=== PATIENT | female | born 1950 ===

== ENCOUNTER 2024-06-30 08:35 | Outpatient (CLI) | payer OTHER | END 2024-06-30 08:55 | disposition home or self-care (01) | LOC: TOM 08:35 | PROVIDERS: ATTEND Colon & Rectal Surgery | DX: K57.20 Diverticulitis of large intestine with perforation and abscess without bleeding (principal) | CPT/HCPCS: 74177; Q9965 ==

== ENCOUNTER 2024-07-04 09:15 | Inpatient (IN) | payer OTHER ==
[~2024-07-04] VITALS: Ht 154.9 cm; Wt 87.5 kg
[2024-07-04 12:06] VITALS: BP 144/80
[2024-07-04 12:07] VITALS: BP 144/65
[2024-07-04 12:18] LABS: INR 1.06; PARTIAL THROMBOPLASTIN TIME 24.2 SECONDS (22.0-34.0); PROTHROMBIN TIME 11.5 SECONDS (9.0-11.5)
[2024-07-04] MEDS ORDERED: PREDNISONE 5 MG (12:28)
[2024-07-04] MEDS ORDERED: ECOTRIN81 MG PO (12:29)
[2024-07-04] MEDS ORDERED: PLAQUENIL 200MG (12:29)
[2024-07-04] MEDS ORDERED: FOLIC ACID 1MG (12:30)
[2024-07-04] MEDS ORDERED: LOZARTAN 50MG (12:31)
[2024-07-04] MEDS ORDERED: SIMBASTATIN (12:33)
[2024-07-04] MEDS ORDERED: DETROL LA4 MG PO (12:34)
[2024-07-04] MEDS ORDERED: PROTONIX40 MG PO (12:34)
[2024-07-04] MEDS ORDERED: GABAPENTIN 200 MG (12:35)
[2024-07-04] MEDS ORDERED: PEPCID AC20 MG PO (12:36)
[2024-07-04] MEDS ORDERED: EC-NAPROSYN500 MG PO (12:36)
[2024-07-04] MEDS ORDERED: GOLIMUMAB 50 MG (12:37)
[2024-07-14 09:18] LABS: RH POSITIVE
[2024-07-14] MEDS ORDERED: CEFTRIAXONE SODIUM 2,000 MG VIAL IV SCH (09:30)
[2024-07-14] MEDS ORDERED: BUPIVACAINE HCL/PF 0.25% 30ML VIAL InF ONE (09:30)
[2024-07-14] MEDS ORDERED: LIDOCAINE HCL 1%/EPINEPHRINE 20ML VIAL IJ ONE (09:30)
[2024-07-14] MEDS ORDERED: CHLORHEXIDINE GLUCONATE 120 ML BOTTLE TOP ONE (09:30)
[2024-07-14] MEDS ORDERED: METRONIDAZOLE/SODIUM CHLORIDE 500 MG/100 ML PIGGYBACK IV SCH (09:30)
[2024-07-14] MEDS ORDERED: MORPHINE SULFATE 4 MG/ML CARTRIDGE IV PRN (13:30)
[2024-07-14] MEDS ORDERED: RINGERS SOLUTION,LACTATED 1,000 ML IV SCH (13:30)
[2024-07-14] MEDS ORDERED: ONDANSETRON HCL 2 MG/ML VIAL IV PRN (13:30)
[2024-07-14] MEDS ORDERED: MORPHINE SULFATE 2 MG/ML CARTRIDGE IV ONE (14:30)
[2024-07-14] MEDS ORDERED: SUGAMMADEX SODIUM 200 MG/2 ML VIAL IV ONE (14:45)
[2024-07-14] MEDS ORDERED: MORPHINE SULFATE 4 MG/ML VIAL IV ONE (15:00)
[2024-07-14] MEDS ORDERED: SIMVASTATIN 20 MG TABLET PO SCH (17:00)
[2024-07-14] MEDS ORDERED: SIMETHICONE 125 MG CAPSULE PO SCH (17:00)
[2024-07-14] MEDS ORDERED: POLYETHYLENE GLYCOL 3350 17 GM BLIST.PACK PO SCH (17:00)
[2024-07-14 17:34] LABS: HEMATOCRIT 38.5 % (36.0-45.00); HEMOGLOBIN 12.4 g/dL (12.0-15.00); MEAN CELL VOLUME 92.6 fL (80.00-100.00); MEAN CORPUSCULAR HEMOGLOBIN 29.8 pg (27.00-32.0); MEAN CORPUSCULAR HGB CONC 32.2 g/dl (32.0-36.0); PLATELET COUNT 192 K/uL (150-450); RED BLOOD COUNT 4.15 M/uL (4.00-6.00); RED CELL DISTRIBUTION WIDTH 13.6 % (11.5-14.5)
[2024-07-14 17:35] VITALS: BP 144/65; O2SAT 97
[2024-07-14] MEDS ORDERED: ACETAMINOPHEN 500 MG GEL..CAP PO SCH (18:00)
[2024-07-14 18:01] LABS: ALBUMIN 3.1 gm/dL (3.4-5.0); CALCIUM 8.4 mg/dL (8.5-10.1); CREATININE SERUM 0.62 mg/dL (0.55-1.02); GFR 94.62; PHOSPHOROUS 4.2 mg/dL (2.5-4.9); POTASSIUM 3.46 mEq/L (3.5-5.1)
[2024-07-14 18:51] LABS: MAGNESIUM 1.1 mg/dL (1.8-2.4)
[2024-07-14] MEDS ORDERED: MAGNESIUM SULFATE IN WATER 2 GM/50 ML PIGGYBAG IV STA (19:07)
[2024-07-14] MEDS ORDERED: FAMOTIDINE/PF 20 MG/2 ML VIAL IV PUSH SCH (21:00)
[2024-07-15 01:09] VITALS: BP 134/60; O2SAT 97
[2024-07-15 08:24] LABS: HEMATOCRIT 35.3 % (36.0-45.00); HEMOGLOBIN 11.5 g/dL (12.0-15.00); MEAN CELL VOLUME 93.2 fL (80.00-100.00); MEAN CORPUSCULAR HEMOGLOBIN 30.3 pg (27.00-32.0); MEAN CORPUSCULAR HGB CONC 32.5 g/dl (32.0-36.0); PLATELET COUNT 176 K/uL (150-450); RED BLOOD COUNT 3.79 M/uL (4.00-6.00); RED CELL DISTRIBUTION WIDTH 13.8 % (11.5-14.5)
[2024-07-15 08:51] LABS: ALBUMIN 2.6 gm/dL (3.4-5.0); CREATININE SERUM 1.24 mg/dL (0.55-1.02); GFR 42.52; MAGNESIUM 1.6 mg/dL (1.8-2.4); PHOSPHOROUS 4.1 mg/dL (2.5-4.9); POTASSIUM 4.12 mEq/L (3.5-5.1)
[2024-07-15] MEDS ORDERED: LOSARTAN POTASSIUM 50 MG TABLET PO SCH (09:00)
[2024-07-15] MEDS ORDERED: PREDNISONE 5 MG TABLET PO SCH (09:00)
[2024-07-15] MEDS ORDERED: GABAPENTIN 400 MG CAPSULE PO SCH (09:00)
[2024-07-15] MEDS ORDERED: LACTOBACILLUS ACIDOPHILUS 1 CAP CAP PO SCH (09:00)
[2024-07-15] MEDS ORDERED: MAGNESIUM CHLORIDE 70 MG TABLET.DR PO SCH (09:00)
[2024-07-15 10:14] VITALS: BP 129/62; O2SAT 98
[2024-07-15] MEDS ORDERED: TAMSULOSIN HCL 0.4 MG CAP PO SCH ×2 (12:55→18:40)
[2024-07-15 16:35] VITALS: BP 106/55; O2SAT 95
[2024-07-15] MEDS ORDERED: ENOXAPARIN SODIUM 40 MG/0.4 ML SYRINGE SUBCUTANEO SCH (17:00)
[2024-07-15] MEDS ORDERED: MAGNESIUM SULFATE IN WATER 2 GM/50 ML PIGGYBAG IV STA (18:30)
[2024-07-15] MEDS ORDERED: OxyCODONE HCL 5 MG TABLET (ROXICODONE) PO PRN (18:45)
[2024-07-16 01:20] VITALS: BP 110/54; O2SAT 95
[2024-07-16 07:38] LABS: HEMATOCRIT 31.3 % (36.0-45.00); HEMOGLOBIN 10.7 g/dL (12.0-15.00); MEAN CELL VOLUME 90.7 fL (80.00-100.00); MEAN CORPUSCULAR HEMOGLOBIN 30.9 pg (27.00-32.0); PLATELET COUNT 180 K/uL (150-450); RED BLOOD COUNT 3.45 M/uL (4.00-6.00)
[2024-07-16 08:10] LABS: ALBUMIN 2.3 gm/dL (3.4-5.0); CALCIUM 8.4 mg/dL (8.5-10.1); CREATININE SERUM 1.08 mg/dL (0.55-1.02); GFR 49.87; MAGNESIUM 2.2 mg/dL (1.8-2.4); PHOSPHOROUS 3.9 mg/dL (2.5-4.9); POTASSIUM 4.01 mEq/L (3.5-5.1)
[2024-07-16] MEDS ORDERED: FAMOtidine 20 MG TABLET PO SCH (09:00)
[2024-07-16 10:39] VITALS: BP 114/59; O2SAT 96
[2024-07-16 16:00] VITALS: BP 107/55; O2SAT 100
[2024-07-16] MEDS ORDERED: CIPROFLOXACIN IN 5 % DEXTROSE 400 MG/200 ML PIGGYBAG IV SCH (17:00)
[2024-07-16] MEDS ORDERED: METRONIDAZOLE/SODIUM CHLORIDE 100 ML IV SCH (17:00)
[2024-07-16 23:51] VITALS: BP 106/56; O2SAT 98
[2024-07-17 07:21] LABS: ALBUMIN 2.5 gm/dL (3.4-5.0); CALCIUM 8.4 mg/dL (8.5-10.1); CREATININE SERUM 1.18 mg/dL (0.55-1.02); GFR 45.02; MAGNESIUM 2.4 mg/dL (1.8-2.4); PHOSPHOROUS 3.4 mg/dL (2.5-4.9); POTASSIUM 4.09 mEq/L (3.5-5.1)
[2024-07-17 08:32] VITALS: BP 112/72; O2SAT 97
[2024-07-17] MEDS ORDERED: NAPH,MB-DB/K PH,MBDB 1 PKT PACKET PO NR (11:15)
[2024-07-17] MEDS ORDERED: CHOLESTYRAMINE/ASPARTAME LIGHT 4 G/PKT PACKET PO STA (14:33)
[2024-07-17 16:31] VITALS: BP 116/69; O2SAT 95
[2024-07-17] MEDS ORDERED: NAPH,MB-DB/K PH,MBDB 1 PKT PACKET PO SCH (17:00)
[2024-07-18] VITALS: BP 101/60; O2SAT 95
[2024-07-18 08:19] VITALS: BP 133/63; O2SAT 97
[2024-07-18] MEDS ORDERED: HYOSCYAMINE SULFATE 0.125 MG TAB.SUBL SL PRN (08:30)
[2024-07-18 14:21] LABS: HEMATOCRIT 29.5 % (36.0-45.00); MEAN CELL VOLUME 90.9 fL (80.00-100.00); MEAN CORPUSCULAR HEMOGLOBIN 30.7 pg (27.00-32.0); MEAN CORPUSCULAR HGB CONC 33.7 g/dl (32.0-36.0); PLATELET COUNT 189 K/uL (150-450); RED BLOOD COUNT 3.25 M/uL (4.00-6.00); RED CELL DISTRIBUTION WIDTH 13.9 % (11.5-14.5)
[2024-07-18 15:17] LABS: ALBUMIN 2.3 gm/dL (3.4-5.0); CALCIUM 8.1 mg/dL (8.5-10.1); CREATININE SERUM 0.6 mg/dL (0.55-1.02); GFR 98.27; MAGNESIUM 1.7 mg/dL (1.8-2.4); PHOSPHOROUS 2.2 mg/dL (2.5-4.9); POTASSIUM 4.6 mEq/L (3.5-5.1)
[2024-07-18 18:51] VITALS: BP 127/70; O2SAT 95
[2024-07-19] VITALS: BP 118/59; O2SAT 98
[2024-07-19 08:20] VITALS: BP 160/72; O2SAT 97
[2024-07-19] MEDS ORDERED: MAGNESIUM SULFATE IN WATER 2 GM/50 ML PIGGYBAG IV NR (11:17)
[2024-07-19] MEDS ORDERED: NAPH,MB-DB/K PH,MBDB 1 PKT PACKET PO SCH (11:17)
== END 2024-07-19 18:19 | disposition home or self-care (01) | DRG 330 ==
LOC: EDUNIT# 09:15 → SURH 07-14 06:16 → O/R 07-14 06:16 → SURH 07-14 07:00
PROVIDERS: ADMIT Colon & Rectal Surgery; ATTEND Colon & Rectal Surgery
PROC: 0DJD4ZZ Inspection of Lower Intestinal Tract, Percutaneous Endoscopic Approach (ICD-10-PCS; 2024-07-14)
PROC: 0DBP0ZZ Excision of Rectum, Open Approach (ICD-10-PCS; 2024-07-14)
PROC: 0DN80ZZ Release Small Intestine, Open Approach (ICD-10-PCS; 2024-07-14)
PROC: 0DBM0ZZ Excision of Descending Colon, Open Approach (ICD-10-PCS; 2024-07-14)
PROC: 0WQF0ZZ Repair Abdominal Wall, Open Approach (ICD-10-PCS; 2024-07-14)
PROC: 0DT80ZZ Resection of Small Intestine, Open Approach (ICD-10-PCS; 2024-07-14)
PROC: 0D9W0ZZ Drainage of Peritoneum, Open Approach (ICD-10-PCS; 2024-07-14)
PROC: 0DTN0ZZ Resection of Sigmoid Colon, Open Approach (ICD-10-PCS; principal; 2024-07-14 07:00)
PROC: BW21ZZZ Computerized Tomography (CT Scan) of Abdomen and Pelvis (ICD-10-PCS; 2024-07-18)
DX: K57.20 Diverticulitis of large intestine with perforation and abscess without bleeding (principal); K43.3 Parastomal hernia with obstruction, without gangrene; K56.51 Intestinal adhesions [bands], with partial obstruction; Z43.3 Encounter for attention to colostomy; Z53.31 Laparoscopic surgical procedure converted to open procedure

== ENCOUNTER 2024-07-10 05:23 | Day surgery (SDC) | payer OTHER ==
[~2024-07-10 05:23] MED LIST: DETROL LA4 MG PO; EC-NAPROSYN500 MG PO; ECOTRIN81 MG PO; FOLIC ACID 1MG; GABAPENTIN 200 MG; GOLIMUMAB 50 MG; LOZARTAN 50MG; PEPCID AC20 MG PO; PLAQUENIL 200MG; PREDNISONE 5 MG; PROTONIX40 MG PO; SIMBASTATIN
[2024-07-10] MEDS ORDERED: MIDAZOLAM HCL 2 MG/2 ML VIAL IV ONE (12:45)
[2024-07-10] MEDS ORDERED: fentaNYL CITRATE 50 MCG/ML AMPUL IV PUSH ONE (12:45)
[2024-07-10] MEDS ORDERED: ONDANSETRON HCL 2 MG/ML VIAL IV ONE (12:45)
[2024-07-10] MEDS ORDERED: DIPHENHYDRAMINE HCL 50 MG/ML VIAL 1ML IV ONE (12:45)
== END 2024-07-10 14:10 | disposition home or self-care (01) ==
LOC: AMB-ENDOS 05:23
PROVIDERS: ATTEND Colon & Rectal Surgery
DX: K57.32 Diverticulitis of large intestine without perforation or abscess without bleeding (principal); Z93.3 Colostomy status; Z12.11 Encounter for screening for malignant neoplasm of colon